=== PATIENT | female | born 1945 | race Caucasian/White ===

== ENCOUNTER → 2018-04-05 | Outpatient (CLI) | payer MEDICARE, BC ==
[~2018-04-05] MED LIST: ASPI325T6 PO; ASPIR-LOW81 MG PO; CALCIUM 500500 MG PO; CELEXA 20MG20 MG/TAB PO; CO Q-1050 MG PO; FOLIC ACID 40400 MCG PO; IRON TABLETS325 MG PO; IRON324 M1; LEXAPRO20 MG PO; MILK OF MA400 MG/5 M PO; NORCO 325 MG-7.1 TAB PO; ROXICODONE 55 MG/TAB PO; SENOKOT8.6 MG PO; SIMVASTATIN PO; TYLENOL EXTRA500 M1 PO; VITAMIN C500 MG PO; VITAMIN D31000 IU PO; ZOCOR 20MG20 MG PO
== END ==
LOC: COL.RAD 09:52
DX: M25.551 Pain in right hip (principal)
CPT/HCPCS: J3301; Q9967

== ENCOUNTER → 2018-05-17 | Outpatient (CLI) | payer MEDICARE, BC | LOC: MC.RAD 10:19 | DX: Z12.31 Encounter for screening mammogram for malignant neoplasm of breast (principal) ==

== ENCOUNTER 2018-07-24 07:52 | Outpatient (RCR) | payer MEDICARE, BC | END 2018-07-25 10:32 | disposition home or self-care (01) | LOC: WSPT 07:52 | DX: Z01.818 Encounter for other preprocedural examination (principal); M17.11 Unilateral primary osteoarthritis, right knee | CPT/HCPCS: G8978-GP; G8979-GP; G8980-GP ==

== ENCOUNTER → 2018-07-26 | Outpatient (CLI) | payer MEDICARE, BC ==
[2018-07-26 16:30] LABS: HIV 1/2 Antibodies Non-Reactive; HIV-1p24 Antigen Non-Reactive
== END ==
LOC: COL.LAB 15:42
PROVIDERS: Orthopaedic Surgery
DX: Z01.812 Encounter for preprocedural laboratory examination (principal); M17.11 Unilateral primary osteoarthritis, right knee

== ENCOUNTER 2018-10-06 13:45 | Outpatient (RCR) | payer MEDICARE, BC | END 2018-11-05 | disposition home or self-care (01) | LOC: WSPT | DX: Z47.1 Aftercare following joint replacement surgery (principal); Z96.651 Presence of right artificial knee joint | CPT/HCPCS: G8978-GP; G8979-GP ==

== ENCOUNTER → 2018-12-04 | Outpatient (CLI) | payer MEDICARE, BC | LOC: COL.RAD 09:55 | DX: R10.31 Right lower quadrant pain (principal) | CPT/HCPCS: Q9967 ==

== ENCOUNTER → 2019-08-28 | Outpatient (CLI) | payer MEDICARE, BC | LOC: COL.RAD 09:29 | DX: M16.11 Unilateral primary osteoarthritis, right hip (principal) | CPT/HCPCS: J3301; Q9967 ==

== ENCOUNTER → 2020-10-01 | Outpatient (CLI) | payer MEDICARE, BC | LOC: MC.RAD 10:45 | DX: Z12.31 Encounter for screening mammogram for malignant neoplasm of breast (principal) ==

== ENCOUNTER 2020-10-15 09:45 | Outpatient (RCR) | payer MEDICARE, BC | END 2020-10-16 09:04 | disposition home or self-care (01) | LOC: WSPT | DX: G57.01 Lesion of sciatic nerve, right lower limb (principal) ==

== ENCOUNTER → 2021-06-04 | Outpatient (CLI) | payer MEDICARE, BC ==
[2021-06-04 13:57] LABS: BASO % 0.3 % (0.0-2.0); EOS % 0.2 % (0-4.0); GRAN # 11.6 (1.4-6.5); GRAN % 80.9 % (42.2-75.2); HEMATOCRIT 42.7 % (37.0-47.0); LYMPH # 1.4 (1.2-3.4); LYMPH % 9.5 % (20.0-51.0); MEAN CELL VOLUME 99 fl (80.0-100.0); MEAN CORPUSCULAR HEMOGLOBIN 32 pg (27.0-31.0); MEAN CORPUSCULAR HGB CONC 33 g/dl (33.0-37.0); MEAN PLATELET VOLUME 11.2 fl (7.4-10.4); MONO # 1.2 (0.1-0.6); MONO % 8.5 % (1.7-9.3); PLATELET COUNT 168 K/mm3 (130-400); RED BLOOD COUNT 4.33 M/mm3 (4.10-5.30); REDCELL DISTRIBUTION WIDTH-CV 12.6 % (11.5-14.5)
[2021-06-04 14:12] LABS: ALBUMIN 4.4 gm/dL (3.5-5.0); BILIRUBIN,TOTAL 0.9 mg/dL (0.0-1.0); CALCIUM 9.2 mg/dL (8.4-10.2); CREATININE, serum 0.97 (0.52-1.25); POTASSIUM 4.2 mmol/L (3.4-5.0); TOTAL PROTEIN 7.6 gm/dL (6.4-8.2)
== END ==
LOC: COL.LAB 13:12
PROVIDERS: Family Medicine
DX: R10.30 Lower abdominal pain, unspecified (principal)

== ENCOUNTER → 2021-07-02 | Outpatient (CLI) | payer MEDICARE, BC | LOC: COL.RAD 06-10 13:00 | DX: M25.551 Pain in right hip (principal) | CPT/HCPCS: J3301; Q9967 ==

== ENCOUNTER → 2021-11-26 | Outpatient (CLI) | payer MEDICARE, BC | LOC: MC.RAD 08:45 | DX: Z12.31 Encounter for screening mammogram for malignant neoplasm of breast (principal) ==

== ENCOUNTER 2022-10-25 12:45 | Outpatient (RCR) | payer MEDICARE, BC | END 2022-10-26 | disposition home or self-care (01) | LOC: WSPT | DX: M43.6 Torticollis (principal) ==

== ENCOUNTER → 2022-11-25 | Outpatient (CLI) | payer MEDICARE, BC | LOC: COL.RAD 13:01 | DX: M70.61 Trochanteric bursitis, right hip (principal) | CPT/HCPCS: J3301; Q9967 ==

== ENCOUNTER 2024-03-22 09:45 | Outpatient (RCR) | payer MEDICARE, BC | END 2024-03-25 | LOC: WSPT | DX: M54.2 Cervicalgia (principal) ==

== ENCOUNTER → 2024-06-25 | Outpatient (CLI) | payer MEDICARE, BC | LOC: MHCPAIN 12:58 | DX: M25.551 Pain in right hip (principal); M54.50 Low back pain, unspecified; M54.12 Radiculopathy, cervical region; M50.322 Other cervical disc degeneration at C5-C6 level; Z96.653 Presence of artificial knee joint, bilateral; M48.02 Spinal stenosis, cervical region; E11.9 Type 2 diabetes mellitus without complications; E78.5 Hyperlipidemia, unspecified; Z79.84 Long term (current) use of oral hypoglycemic drugs; M50.323 Other cervical disc degeneration at C6-C7 level | CPT/HCPCS: G0463 ==

== ENCOUNTER → 2024-07-25 | Outpatient (CLI) | payer MEDICARE, BC | LOC: COL.RAD 09:58 | DX: M16.11 Unilateral primary osteoarthritis, right hip (principal); M51.360 Other intervertebral disc degeneration, lumbar region with discogenic back pain only; M43.16 Spondylolisthesis, lumbar region ==